=== PATIENT | female | born 2000 | race Caucasian/White ===

== ENCOUNTER → 2020-02-28 | Outpatient (CLI) | payer OTHER ==
[~2020-02-28] VITALS: Ht 177.8 cm; Wt 122.5 kg
[2020-02-28] VITALS (7 sets, daily range): BP systolic 114–139; BP diastolic 54–78
[~2020-02-28] MED LIST: ACETAMINOPHEN 325 MG TABLET. PO PRN
[2020-02-28 10:15] LABS: BASO % 1 % (0-3); EOS % 1 % (0-3); LYMPH # 1.9 x10^3/uL (1.0-4.8); LYMPH % 36 % (24-48); MEAN CORPUSCULAR HEMOGLOBIN 18 pg (25-35); MEAN CORPUSCULAR HGB CONC 30 g/dL (31-37); MEAN CORPUSCULAR VOLUME 61 fL (79-100); MONO # 0.3 x10^3/uL (0.0-1.1); MONO % 6 % (0-9); NEUT % 56 % (31-73); PLATELET COUNT 343 x10^3/uL (140-400); RED CELL DISTRIBUTION WIDTH 18.2 % (11.5-14.5); WHITE BLOOD COUNT 5.3 x10^3/uL (4.0-11.0)
[2020-02-28 10:25] LABS: HEMOGLOBIN 6.5 g/dL (12.0-15.5)
[2020-02-28 11:15] LABS: ANISOCYTOSIS SLIGHT; HYPOCHROMIA MARKED; MICROCYTOSIS MOD; PLT ESTIMATE ADEQUATE (ADEQUATE)
== END | disposition home or self-care (01) ==
LOC: OPS 09:08
PROVIDERS: ATTEND Nurse Practitioner Gerontology
DX: D64.9 Anemia, unspecified (principal)
CPT/HCPCS: 36415; 36430; 85014; 85018; 85025; 86850; 86900; 86901; 86920; P9016

== ENCOUNTER → 2020-03-25 | Outpatient (CLI) | payer OTHER ==
[2020-02-28 14:46] VITALS: BP 133/76
--- NOTE | 2020-03-25 18:00 | RAD ---
INDICATION: Dysmenorrhea COMPARISON: None. TECHNIQUE: Grayscale and color ultrasound images uterus and adnexa. FINDINGS: Uterus: 81 x 59 x 38 mm. Endometrial stripe is 6-8 mm. Right Ovary: 30 x 20 x 19 mm. Left Ovary: 37 x 20 x 20 mm. Vascular flow identified to bilateral ovaries. IMPRESSION: * Vascular flow seen to the ovaries. Electronically signed by: Arthur Wolff MD (03/25/2020 5:57 PM) [id number]
== END ==
LOC: US 12:05
PROVIDERS: ATTEND Nurse Practitioner Gerontology
DX: N94.6 Dysmenorrhea, unspecified (principal)
CPT/HCPCS: 76856